=== PATIENT | female | born 1995 | race African-American/Black ===

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

== ENCOUNTER 2017-01-14 21:25 | Emergency (ER) | payer SELFPAY ==
[~2017-01-14] VITALS: Ht 160 cm; Wt 62.0 kg
[~2017-01-14 21:25] MED LIST changes: +BACT800T5 PO; +OCUF0.3D LEFT EYE
[2017-01-14 21:26] VITALS: BP 103/59; PULSE 98; RESP 16; TEMP 98.8; O2SAT 98
--- NOTE | 2017-01-14 21:49 | PD ---
HPI Chief Complaint: Allergic/Adverse Reaction Time Seen by Provider: 21:40 Travel History International Travel<30 days: No Contact w/Intl Traveler<30days: No Traveled to known affect area: No History of Present Illness HPI 21-year-old female presents to emergency department for evaluation of possible allergic reaction. Patient states approximately 2 hours ago she had chicken fingers and fries. She states she began itching. Her lips began to swell. She has not taken anything for this, states the itching is unbearable. 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 Denies any sensation of throat swelling or difficulty breathing. She has no other symptoms to report. [facility] Past Medical History Asthma: Yes Diminished Hearing: No Respiratory: Yes (ASTHMA) Immunizations Current: Yes ?: Not LMP: 12/2016 Social History Alcohol Use: No Tobacco Use: No Substance Use: No Allergies-Medications (Allergen,Severity, Reaction): Coded Allergies: No Known Allergies (Unverified , 01/14/17) Reported Meds & Prescriptions Reported Meds & Active Scripts Active Prednisone 20 Mg Tab 20 Mg PO BID 3 Days Epipen 2-Luiz Inj (Epinephrine) 0.3 Mg/0.3 Ml Pfpen 0.3 Mg SQ ONCE PRN Reported Allergy Relief (Loratadine) 10 Mg Tab 10 Mg PO DAILY Dulera 120 Act Inh (Mometasone-Formoterol 120 Act Inh) 100-5 Mcg/Act Inh 2 Puff INH BID Review of Systems Except as stated in HPI: all other systems reviewed are Neg Physical Exam Narrative GENERAL: Well-nourished, well-developed female patient, in no acute distress. SKIN: Focused skin assessment warm/dry. Blanchable erythematous urticarial- like rash on the upper extremities. HEAD: Normocephalic. EYES: No scleral icterus. No injection or drainage. ENT: Moderate edema of the lips. Mucosa pink and moist. No erythema or exudates. No uvular edema. No uvular, palatal, or tonsillar deviation. Airway patent. Nasal turbinates appear normal without nasal blood, purulent drainage or septal hematoma. NECK: Supple, trachea midline. No JVD or lymphadenopathy. No stridor CARDIOVASCULAR: Regular rate and rhythm without murmurs, gallops, or rubs. RESPIRATORY: Breath sounds equal bilaterally. No accessory muscle use. GASTROINTESTINAL: Abdomen soft, non-tender, nondistended. MUSCULOSKELETAL: No cyanosis, or edema. BACK: Nontender without obvious deformity. No CVA tenderness. Data Data Last Documented VS Vital Signs Date Time Temp Pulse Resp B/P (MAP) Pulse Ox O2 Delivery O2 Flow Rate FiO2 01/14/17 21:26 98.8 98 16 103/59 (74) 98 Room Air Orders Orders Ecg Monitoring (01/14/17 21:48) Iv Access Insert/Monitor (01/14/17 21:48) Oximetry (01/14/17 21:48) Diphenhydramine Inj (Benadryl Inj) (01/14/17 22:00) Methylprednisolone So Succ Inj (Solumedr (01/14/17 22:00) Famotidine Inj (Pepcid Inj) (01/14/17 22:00) Sodium Chloride 0.9% Flush (Ns Flush) (01/14/17 22:00) MDM Medical Decision Making Medical Screen Exam Complete: Yes Emergency Medical Condition: Yes Medical Record Reviewed: Yes Differential Diagnosis Allergic reaction versus contact dermatitis versus anaphylaxis Narrative Course 21-year-old female presents to emergency department for evaluation of possible allergic reaction. Patient appears without distress. She does have a urticarial-like rash on her upper extremities and a few edema. IV access is obtained and the patient is given Benadryl, Pepcid, and Solu-Medrol. She'll be observed for 2 hours. Upon reassessment, patient reports feeling much better. She states that he still does have some itching however hives have completely resolved and her angioedema has resolved. Patient will be prescribed an EpiPen. I have encouraged trolley wire installer follow-up. She agrees to return immediately with any acute worsening of symptoms. Diagnosis Primary Impression: Allergic reaction Qualified Codes: T78.40XA - Allergy, unspecified, initial encounter Referrals: Primary Care Physician Patient Instructions: Anaphylaxis (ED), General Instructions Additional Instructions: Continue Benadryl as instructed on the package for the next 24 hours. Seek trolley wire installer evaluation Carry EpiPen with you where you go. If you need to use it come to the emergency department immediately following Follow-up with the primary care provider return immediately with any acute worsening symptoms. Med/Other Pt SpecificInfo: Prescription(s) given Scripts Prednisone (Prednisone) 20 Mg Tab 20 MG PO BID for 3 Days, #6 TAB 0 Refills Prov: Dora Julian 01/14/17 Epinephrine Inj (Epipen 2-Luiz Inj) 0.3 Mg/0.3 Ml Pfpen 0.3 MG SQ ONCE Y for ALLERGIC REACTION, #1 PACK 0 Refills Prov: Dora Julian 01/14/17 Disposition: 01 DISCHARGE HOME Condition: Stable Dora Julian Jan 14, 2017 21:49
[2017-01-14] MEDS ORDERED: methylPREDNISolone SOD SUCC 125 MG/2 ML VIAL IV PUSH ONE (22:00)
[2017-01-14] MEDS ORDERED: diphenhydrAMINE HCL 50 MG/ML VIAL IVP ONE (22:00)
[2017-01-14] MEDS ORDERED: SODIUM CHLORIDE 0.9% FLUSH 10 ML FLUSH IV FLUSH PRN (22:00)
[2017-01-14] MEDS ORDERED: FAMOTIDINE 20 MG/2 ML VIAL IV PUSH ONE (22:00)
[2017-01-14] MEDS ORDERED: ALLE10TA PO (22:01)
[2017-01-14] MEDS ORDERED: EPIP0.3I SQ (23:03)
[2017-01-14] MEDS ORDERED: PRED20 PO (23:03)
== END 2017-01-14 23:22 | disposition home or self-care (01) ==
LOC: NEPD 21:25
DX: T78.40XA Allergy, unspecified, initial encounter (principal); L50.9 Urticaria, unspecified; J45.909 Unspecified asthma, uncomplicated
CPT/HCPCS: 96374; 96375; 99284; J1200; J2930

== ENCOUNTER 2017-02-16 13:09 | Emergency (ER) | payer SELFPAY ==
[~2017-02-16] VITALS: Ht 160 cm; Wt 61.0 kg
[~2017-02-16 13:09] MED LIST changes: -ALBUAER3 INH; -BACT800T5 PO; +EPIP0.3I SQ; -IPRA0.06 EACH NARE; +LORA-650 PO; -LORA10TA PO; -OCUF0.3D LEFT EYE; +PRED20 PO
[2017-02-16 13:13] VITALS: BP 129/56; PULSE 80; RESP 16; TEMP 98.4
--- NOTE | 2017-02-16 13:17 | PD ---
Physical Exam Date Seen by Provider: Feb 16, 2017 Time Seen by Provider: 13:15 Narrative 21-year-old black female presents to emergency department for evaluation of a possible allergic reaction to blueberries. She states that around 1:00 yesterday afternoon she had taken a bite of a waffle that may have had blueberries in it. She states that she's had allergic reactions to blueberries in the past causing her throat to close up. She states that she had spit the waffle out and did not swallow it. She states today she's had sensation of swelling in her throat, swollen lips and upset stomach. Patient states that she does feel short of breath and had some wheezing. Symptoms are mild-to- moderate. Vital signs reviewed. Pt. waiting for bed placement. Data Data Last Documented VS Vital Signs Date Time Temp Pulse Resp B/P (MAP) Pulse Ox O2 Delivery O2 Flow Rate FiO2 02/16/17 13:13 98.4 80 16 129/56 (80) Room Air [facility] Medical Record Reviewed: No Supervised Visit with SAMARA: Randy Aaron Feb 16, 2017 13:17
[2017-02-16] MEDS ORDERED: diphenhydrAMINE HCL 50 MG/ML VIAL IV PUSH ONE (13:30)
[2017-02-16] MEDS ORDERED: PROCHLORPERAZINE INJ 10 MG/2 ML VIAL IV PUSH ONE (13:45)
[2017-02-16] MEDS ORDERED: SODIUM CHLOR 0.9% 1000 ML INJ 1,000 ML IV ONE (13:45)
[2017-02-16 13:56] VITALS: PULSE 58; RESP 16; O2SAT 100
--- NOTE | 2017-02-16 14:47 | PD ---
HPI . Allergic reaction Chief Complaint: Allergic/Adverse Reaction Time Seen by Provider: 13:29 Travel History International Travel<30 days: No Contact w/Intl Traveler<30days: No Traveled to known affect area: No History of Present Illness HPI This patient presents with a chief complaint of an allergic reaction. She states that she has a known allergy to blueberries and inadvertently ate a blueberry waffle yesterday. She reports the onset of symptoms at about 2:00 yesterday afternoon. She had eaten a wall fall about an hour beforehand. She states that she initially had itching of her throat. She took some Benadryl and got better. However, this morning, the itching of her throat recurred. She developed swelling of her lips, shortness of breath and nausea and vomiting. She did not take anymore Benadryl. She presented to us. [facility] Past Medical History Asthma: Yes Diminished Hearing: No Respiratory: Yes (ASTHMA) Immunizations Current: Yes ?: Unknown Social History Alcohol Use: No Tobacco Use: No Substance Use: No Allergies-Medications (Allergen,Severity, Reaction): Coded Allergies: blueberry (Verified Allergy, Severe, close throat, 02/16/17) No Known Allergies (Unverified Allergy, Unknown, 02/16/17) Reported Meds & Prescriptions Reported Meds & Active Scripts Active Prednisone 20 Mg Tab 20 Mg PO BID 3 Days Epipen 2-Luiz Inj (Epinephrine) 0.3 Mg/0.3 Ml Pfpen 0.3 Mg SQ ONCE PRN Reported Allergy Relief (Loratadine) 10 Mg Tab 10 Mg PO DAILY Dulera 120 Act Inh (Mometasone-Formoterol 120 Act Inh) 100-5 Mcg/Act Inh 2 Puff INH BID Review of Systems Except as stated in HPI: all other systems reviewed are Neg HENT: Positive: Other (itching throat and swollen lips) Respiratory: Positive: Shortness of Breath Gastrointestinal: Positive: Nausea, Vomiting Physical Exam Narrative GENERAL: Patient is awake and alert. She occasionally stops and vomits up a very small amount of gastric contents. SKIN: Warm and dry without rash or lesions. HEAD: Normocephalic/atraumatic. EYES: Pupils are equal. Extraocular movements are intact. ENT: Voice is clear. Oropharynx has no visible swelling. Her lips do look swollen. NECK: Supple. CARDIOVASCULAR: Heart sounds are normal. RESPIRATORY: Lungs are clear with full air movement throughout. ABDOMEN: Soft and nontender. MUSCULOSKELETAL: Atraumatic. NEUROLOGICAL: Nonfocal. PSYCHIATRIC: Appropriate mood and affect. Data Data Last Documented VS Vital Signs Date Time Temp Pulse Resp B/P (MAP) Pulse Ox O2 Delivery O2 Flow Rate FiO2 02/16/17 13:56 58 16 100 Room Air 02/16/17 13:13 98.4 129/56 (80) Orders Orders Diphenhydramine Inj (Benadryl Inj) (02/16/17 13:30) Prochlorperazine Inj (Compazine Inj) (02/16/17 13:45) Sodium Chlor 0.9% 1000 Ml Inj (Ns 1000 M (02/16/17 13:45) MDM Medical Decision Making Medical Screen Exam Complete: Yes Emergency Medical Condition: Yes Differential Diagnosis My differential diagnosis of an allergic reaction includes but is not limited to localized allergic reaction, mild systemic reaction, anaphylaxis Narrative Course This patient presents with what seems to be a mild allergic reaction. She has itching of her throat, swelling of her lips, shortness of breath and nausea/ vomiting. However, she is having no airway issue. Her lungs are clear with full air movement throughout. I have treated her with IV Benadryl and IV Compazine. She is now sound sleep. She reported to her family that she felt better and was ready to go home. Diagnosis Primary Impression: Allergic reaction to food Qualified Codes: T78.1XXA - Other adverse food reactions, not elsewhere classified, initial encounter Patient Instructions: General Allergic Reaction (ED), General Instructions Additional Instructions: Keep Benadryl on hand. Take 2 every 4 hours as needed for an allergic reaction. Disposition: 01 DISCHARGE HOME Condition: Stable Es Lam MD Feb 16, 2017 14:47
== END 2017-02-16 15:13 | disposition home or self-care (01) ==
LOC: NEPD 13:09
DX: T78.1XXA Other adverse food reactions, not elsewhere classified, initial encounter (principal); L29.9 Pruritus, unspecified; R22.0 Localized swelling, mass and lump, head; R06.02 Shortness of breath; R11.2 Nausea with vomiting, unspecified; J45.909 Unspecified asthma, uncomplicated; Z79.899 Other long term (current) drug therapy
CPT/HCPCS: 96374; 96375; 99284; J0780; J1200; J7030

== ENCOUNTER 2017-03-19 15:14 | Emergency (ER) | payer SELFPAY ==
[2017-03-19 15:16] VITALS: BP 115/68; PULSE 70; RESP 14; TEMP 99; O2SAT 100
[2017-03-19] MEDS ORDERED: SODIUM CHLOR 0.9% 1000 ML INJ 1,000 ML IV SCH (15:38)
--- NOTE | 2017-03-19 15:40 | PD ---
HPI Chief Complaint: GI Complaint Time Seen by Provider: 15:30 Travel History International Travel<30 days: No Contact w/Intl Traveler<30days: No Traveled to known affect area: No History of Present Illness HPI Examined in presence of female nurse. 21-year-old female presents for evaluation of nausea, vomiting, diarrhea. She reports that at 8 PM yesterday she ate a chicken burrito. She began vomiting and having diarrhea 130 in the morning. She reports nonbloody emesis, dry heaving as well as mild epigastric pain, watery nonbloody stools. She endorses some chills. Denies dysuria, flank pain, vaginal bleeding or discharge. She has no other complaints. PFSH Past Medical History Asthma: Yes Diminished Hearing: No Respiratory: Yes (ASTHMA) Immunizations Current: Yes Tetanus Vaccination: < 5 Years ?: Not LMP: 02/26/2017 Social History Alcohol Use: No Tobacco Use: No Substance Use: No Allergies-Medications (Allergen,Severity, Reaction): Coded Allergies: blueberry (Verified Allergy, Severe, close throat, 03/19/17) No Known Allergies (Unverified Allergy, Unknown, 03/19/17) Reported Meds & Prescriptions Reported Meds & Active Scripts Active Zofran (Ondansetron HCl) 4 Mg Tab 4 Mg PO Q6HR PRN Epipen 2-Luiz Inj (Epinephrine) 0.3 Mg/0.3 Ml Pfpen 0.3 Mg SQ ONCE PRN Reported Allergy Relief (Loratadine) 10 Mg Tab 10 Mg PO DAILY Dulera 120 Act Inh (Mometasone-Formoterol 120 Act Inh) 100-5 Mcg/Act Inh 2 Puff INH BID Review of Systems Except as stated in HPI: all other systems reviewed are Neg Physical Exam Narrative GENERAL: Well-nourished female in no acute distress SKIN: Warm and dry. HEAD: Atraumatic. Normocephalic. EYES: Pupils equal and round. No scleral icterus. No injection or drainage. ENT: No nasal bleeding or discharge. Mucous membranes pink and moist. NECK: Trachea midline. No JVD. CARDIOVASCULAR: Regular rate and rhythm. No murmur appreciated. RESPIRATORY: No accessory muscle use. Clear to auscultation. Breath sounds equal bilaterally. GASTROINTESTINAL: Abdomen soft, mild epigastric tenderness without guarding. MUSCULOSKELETAL: No obvious deformities. No clubbing. No cyanosis. No edema. NEUROLOGICAL: Awake and alert. No obvious cranial nerve deficits. Motor grossly within normal limits. Normal speech. PSYCHIATRIC: Appropriate mood and affect; insight and judgment normal. Data Data Last Documented VS Vital Signs Date Time Temp Pulse Resp B/P (MAP) Pulse Ox O2 Delivery O2 Flow Rate FiO2 03/19/17 15:16 99.0 70 14 115/68 (84) 100 Orders Orders Complete Blood Count With Diff (03/19/17 15:38) Comprehensive Metabolic Panel (03/19/17 15:38) Lipase (03/19/17 15:38) Iv Access Insert/Monitor (03/19/17 15:38) Ondansetron Inj (Zofran Inj) (03/19/17 15:45) Sodium Chlor 0.9% 1000 Ml Inj (Ns 1000 M (03/19/17 15:38) Sodium Chloride 0.9% Flush (Ns Flush) (03/19/17 15:45) Ed Urine Pregnancytest Poc (03/19/17 15:38) Labs Laboratory Tests Test 03/19/17 15:40 White Blood Count 6.5 TH/MM3 Red Blood Count 4.34 MIL/MM3 Hemoglobin 12.1 GM/DL Hematocrit 36.2 % Mean Corpuscular Volume 83.3 FL Mean Corpuscular Hemoglobin 27.8 PG Mean Corpuscular Hemoglobin Concent 33.4 % Red Cell Distribution Width 15.3 % Platelet Count 221 TH/MM3 Mean Platelet Volume 8.0 FL Neutrophils (%) (Auto) 58.9 % Lymphocytes (%) (Auto) 32.5 % Monocytes (%) (Auto) 7.4 % Eosinophils (%) (Auto) 0.8 % Basophils (%) (Auto) 0.4 % Neutrophils # (Auto) 3.8 TH/MM3 Lymphocytes # (Auto) 2.1 TH/MM3 Monocytes # (Auto) 0.5 TH/MM3 Eosinophils # (Auto) 0.1 TH/MM3 Basophils # (Auto) 0.0 TH/MM3 CBC Comment DIFF FINAL Differential Comment Blood Urea Nitrogen 12 MG/DL Creatinine 0.96 MG/DL Random Glucose 74 MG/DL Total Protein 7.9 GM/DL Albumin 3.9 GM/DL Calcium Level 9.1 MG/DL Alkaline Phosphatase 93 U/L Aspartate Amino Transf (AST/SGOT) 15 U/L Alanine Aminotransferase (ALT/SGPT) 20 U/L Total Bilirubin 0.2 MG/DL Sodium Level 136 MEQ/L Potassium Level 3.8 MEQ/L Chloride Level 104 MEQ/L Carbon Dioxide Level 26.9 MEQ/L Anion Gap 5 MEQ/L Estimat Glomerular Filtration Rate 91 ML/MIN Lipase 105 U/L MDM Medical Decision Making Medical Screen Exam Complete: Yes Emergency Medical Condition: Yes Medical Record Reviewed: Yes Differential Diagnosis Food poisoning, gastroenteritis, , dehydration, pancreatitis Narrative Course 21-year-old female with 1 day history of nausea, vomiting, diarrhea. Suspect gastroenteritis/food poisoning. Plan is for lab work, IV fluids, Zofran. Lab work is unremarkable. On reexamination she feels much better and she is able tolerate oral hydration. She is stable for discharge with a short course of Zofran. Diagnosis Primary Impression: Gastroenteritis Additional Instructions: Zofran for nausea. Slowly advance diet. Return for any emergent medical conditions. Med/Other Pt SpecificInfo: Prescription(s) given Scripts Ondansetron (Zofran) 4 Mg Tab 4 MG PO Q6HR Y for NAUSEA OR VOMITING, #15 TAB 0 Refills Prov: Manuel Barger MD 03/19/17 Disposition: 01 DISCHARGE HOME Condition: Stable Yonas Muñoz Mar 19, 2017 15:40
[2017-03-19] MEDS ORDERED: ONDANSETRON HCL 4 MG/2 ML VIAL IVP ONE (15:45)
[2017-03-19] MEDS ORDERED: SODIUM CHLORIDE 0.9% FLUSH 10 ML FLUSH IV FLUSH PRN (15:45)
[2017-03-19 16:08] LABS: AUTOMATED NEUTROPHIL # 3.8 TH/MM3 (1.8-7.7); BASOPHIL % 0.4 % (0.0-2.0); EOSINOPHIL # 0.1 TH/MM3 (0-0.4); EOSINOPHIL % 0.8 % (0.0-4.0); HEMATOCRIT 36.2 % (35.0-46.0); HEMO FLAGS DIFF FINAL; LYMPH % 32.5 % (9.0-44.0); LYMPHOCYTE # 2.1 TH/MM3 (1.0-4.8); MEAN CELL VOLUME 83.3 FL (80.0-100.0); MEAN CORPUSCULAR HEMOGLOBIN 27.8 PG (27.0-34.0); MEAN CORPUSCULAR HGB CONC 33.4 % (32.0-36.0); MONO % 7.4 % (0.0-8.0); NEUT % 58.9 % (16.0-70.0); PLATELET COUNT 221 TH/MM3 (150-450); RED BLOOD COUNT 4.34 MIL/MM3 (4.00-5.30); RED CELL DISTRIBUTION WIDTH 15.3 % (11.6-17.2); WHITE BLOOD COUNT 6.5 TH/MM3 (4.0-11.0)
[2017-03-19 16:26] LABS: ALT (GPT) 20 U/L (9-42); ANION GAP 5 MEQ/L (5-15); AST (GOT) 15 U/L (16-38); BICARBONATE 26.9 MEQ/L (21.0-32.0); BLOOD UREA NITROGEN 12 MG/DL (7-18); CHLORIDE 104 MEQ/L (98-107); GLOMERULAR FILTRATION RATE 91 ML/MIN (>89); POTASSIUM 3.8 MEQ/L (3.5-5.1); SODIUM (NA) 136 MEQ/L (136-145)
[2017-03-19 16:28] LABS: ALKALINE PHOSPHATASE 93 U/L (45-117); TOTAL BILIRUBIN ADULT 0.2 MG/DL (0.2-1.0)
[2017-03-19] MEDS ORDERED: ZOFR4TAB PO (16:32)
== END 2017-03-19 17:12 | disposition home or self-care (01) ==
LOC: NEPC 15:14
DX: K52.9 Noninfective gastroenteritis and colitis, unspecified (principal)
CPT/HCPCS: 80053; 83690; 84703; 85025; 96361; 96374; 99284; J2405; J7030

== ENCOUNTER 2017-05-12 23:49 | Emergency (ER) | payer SELFPAY ==
[~2017-05-12] VITALS: Ht 161.3 cm; Wt 60.0 kg
[~2017-05-12 23:49] MED LIST changes: -PRED20 PO; +ZOFR4TAB PO
[2017-05-12 23:51] VITALS: BP 118/76; PULSE 96; RESP 16; TEMP 98.3; O2SAT 100
--- NOTE | 2017-05-13 01:46 | RADRPT ---
EXAM DATE/TIME: 05/13/2017 01:30 [facility] COMPARISON: ANKLE RIGHT COMPLETE ([id number]), January 11, 2016, 16:56. INDICATIONS : Right medial ankle pain after tripping a few hours ago. MEDICAL HISTORY : None. SURGICAL HISTORY : None. ENCOUNTER: Initial ACUITY: 1 day PAIN SCORE: 5/10 LOCATION: Right ankle FINDINGS: Three view exam was performed of the right ankle. The bony structures are in normal alignment. No e vidence of fracture, dislocation, or soft tissue swelling. The ankle mortise is intact. No radiopaq ue foreign bodies are seen. Bony mineralization is normal. CONCLUSION: No evidence of recent bony injury. Eddy Larios MD on May 13, 2017 at 1:44 Board Certified Radiologist. This report was verified electronically.
[2017-05-13] MEDS ORDERED: IBUP1TAB7 PO (02:29)
--- NOTE | 2017-05-13 02:29 | PD ---
HPI Chief Complaint: Injury Time Seen by Provider: 01:55 Travel History International Travel<30 days: No Contact w/Intl Traveler<30days: No Traveled to known affect area: No History of Present Illness HPI Patient is a 21-year-old female presenting to emergency for evaluation of right ankle pain. Patient states that she twisted Thursday at [facility], she is able to bear weight but it's sore. She states that she tripped in her dorm room yesterday and twisted it again. She states the pain is 8 out of 10, she states it's sore and throbbing. There are no alleviating factors, pain is exacerbated with movement. Onset was sudden. Patient denies any other injury. She took ibuprofen at 1700 last night. PFSH Past Medical History Asthma: Yes Diminished Hearing: No Respiratory: Yes (ASTHMA) Immunizations Current: Yes ?: Not LMP: 04/24/17 Past Surgical History Surgical History: No Previous Surgery Social History Alcohol Use: No Tobacco Use: No Substance Use: No Allergies-Medications (Allergen,Severity, Reaction): Coded Allergies: Sulfa (Sulfonamide Antibiotics) (Verified Allergy, Severe, Anaphylaxis, ) blueberry (Verified Allergy, Severe, close throat, 05/12/17) No Known Allergies (Unverified Allergy, Unknown, 03/19/17) Reported Meds & Prescriptions Reported Meds & Active Scripts Active Epipen 2-Luiz Inj (Epinephrine) 0.3 Mg/0.3 Ml Pfpen 0.3 Mg SQ ONCE PRN Reported Dulera 120 Act Inh (Mometasone-Formoterol 120 Act Inh) 100-5 Mcg/Act Inh 2 Puff INH BID Review of Systems Except as stated in HPI: all other systems reviewed are Neg Musculoskeletal: Positive: Myalgias, Arthralgias, Pain, No: Edema Skin: No Change in Pigmentation Physical Exam Narrative GENERAL: Well-developed, well-nourished, alert female. Resting comfortably in no acute distress. SKIN: Warm and dry. HEAD: Normocephalic. EYES: No scleral icterus. No injection or drainage. NECK: Supple, trachea midline. No JVD or lymphadenopathy. CARDIOVASCULAR: Regular rate and rhythm without murmurs, gallops, or rubs. RESPIRATORY: Breath sounds equal bilaterally. No accessory muscle use. GASTROINTESTINAL: Abdomen soft, non-tender, nondistended. MUSCULOSKELETAL: No cyanosis, or edema. Full range of motion with flexion, extension and internal and external rotation. 2+ dorsalis pedal pulses. There is no obvious deformity or edema noted to the right ankle. BACK: Nontender without obvious deformity. No CVA tenderness. Data Data Last Documented VS Vital Signs Date Time Temp Pulse Resp B/P (MAP) Pulse Ox O2 Delivery O2 Flow Rate FiO2 05/12/17 23:51 98.3 96 16 118/76 (90) 100 Orders Orders Ankle, Complete ([id number]) (05/13/17 ) [facility] Medical Decision Making Medical Screen Exam Complete: Yes Emergency Medical Condition: Yes Interpretation(s) Last Impressions Ankle X-Ray 05/13/17 0000 Signed Impressions: Service Date/Time: Saturday, May 13, 2017 01:30 - CONCLUSION: No evidence of recent bony injury. Eddy Larios MD Vital Signs Date Time Temp Pulse Resp B/P (MAP) Pulse Ox O2 Delivery O2 Flow Rate FiO2 05/12/17 23:51 98.3 96 16 118/76 (90) 100 Differential Diagnosis Fracture versus sprain versus strain versus other Narrative Course Patient is a 21 female presenting to emergency department for evaluation of right ankle pain after twisting it twice since Thursday. No focal deficits noted on exam. No obvious deformities. Patient's vital signs are stable, x-ray ordered. X-ray of the right ankle is negative for acute bony abnormality. Patient was encouraged to rest, ice, elevate extremity. She was offered an Frank wrap and crutches but declined. She is encouraged to eat ibuprofen every 6-8 hours consistently for the next 2-3 days with a small meal. She is encouraged to return to emergency department for any new or worsening symptoms. Patient verbalized understanding of instructions. Patient stable for discharge. Diagnosis Primary Impression: Right ankle pain Qualified Codes: M25.571 - Pain in right ankle and joints of right foot Referrals: Primary Care Physician Patient Instructions: Ankle Exercises (GEN), Ankle Sprain (ED), General Instructions Additional Instructions: Rest, ice, elevate extremity Take ibuprofen as directed and as needed for pain Return to emergency department for any new or worsening symptoms Follow-up with her primary doctor Med/Other Pt SpecificInfo: Prescription(s) given Scripts Ibuprofen (Ibuprofen) 800 Mg Tab 800 MG PO Q6HR Y for PAIN, #40 TAB 0 Refills Prov: Klaudia Land 05/13/17 Disposition: 01 DISCHARGE HOME Condition: Stable Klaudia Land May 13, 2017 02:29
== END 2017-05-13 02:38 | disposition home or self-care (01) ==
LOC: NEPD 23:49
DX: M25.571 Pain in right ankle and joints of right foot (principal); X50.0XXA Overexertion from strenuous movement or load, initial encounter; Y93.01 Activity, walking, marching and hiking; W18.40XA Slipping, tripping and stumbling without falling, unspecified, initial encounter; Y92.169 Unspecified place in school dormitory as the place of occurrence of the external cause; J45.909 Unspecified asthma, uncomplicated
CPT/HCPCS: 73610; 99283

== ENCOUNTER 2017-06-09 11:55 | Emergency (ER) | payer SELFPAY ==
[~2017-06-09] VITALS: Ht 160 cm; Wt 59.0 kg
[~2017-06-09 11:55] MED LIST changes: +IBUP1TAB7 PO; -LORA-650 PO; -ZOFR4TAB PO
[2017-06-09 11:56] VITALS: BP 110/51; PULSE 72; RESP 16; TEMP 98.9; O2SAT 98
[2017-06-09 12:33] LABS: AUTOMATED NEUTROPHIL # 3.8 TH/MM3 (1.8-7.7); BASOPHIL % 0.4 % (0.0-2.0); EOSINOPHIL # 0.1 TH/MM3 (0-0.4); EOSINOPHIL % 0.9 % (0.0-4.0); HEMATOCRIT 39.2 % (35.0-46.0); HEMOGLOBIN 13.1 GM/DL (11.6-15.3); LYMPH % 26.1 % (9.0-44.0); LYMPHOCYTE # 1.5 TH/MM3 (1.0-4.8); MEAN CELL VOLUME 82.3 FL (80.0-100.0); MEAN CORPUSCULAR HEMOGLOBIN 27.6 PG (27.0-34.0); MEAN CORPUSCULAR HGB CONC 33.5 % (32.0-36.0); MEAN PLATELET VOLUME 7.7 FL (7.0-11.0); MONO % 6.1 % (0.0-8.0); MONOCYTE # 0.3 TH/MM3 (0-0.9); NEUT % 66.5 % (16.0-70.0); PLATELET COUNT 238 TH/MM3 (150-450); RED BLOOD COUNT 4.77 MIL/MM3 (4.00-5.30); RED CELL DISTRIBUTION WIDTH 14.6 % (11.6-17.2); WHITE BLOOD COUNT 5.7 TH/MM3 (4.0-11.0)
[2017-06-09 12:37] LABS: BILIRUBIN, URINE NEG (NEG); BLOOD, URINE NEG (NEG); GLUCOSE,URINE NEG (NEG); KETONE, URINE NEG (NEG); MUCUS URINE FEW /lpf (OCC); NITRITE,URINE NEG (NEG); PH, URINE 6.5 (5.0-8.5); SQUAMOUS EPITHELIAL CELL URINE 1 /hpf (0-5); URINE COLOR YELLOW (YELLW/STRAW); URINE LEUKOCYTE ESTERASE MOD (NEG)
[2017-06-09 12:50] LABS: ALBUMIN 3.9 GM/DL (3.4-5.0); ALT (GPT) 16 U/L (9-42); AST (GOT) 17 U/L (16-38); BICARBONATE 26.2 MEQ/L (21.0-32.0); BLOOD UREA NITROGEN 11 MG/DL (7-18); CALCIUM 8.7 MG/DL (8.5-10.1); CHLORIDE 104 MEQ/L (98-107); GLOMERULAR FILTRATION RATE 86 ML/MIN (>89); GLUCOSE,RANDOM 95 MG/DL (74-106); SODIUM (NA) 137 MEQ/L (136-145)
[2017-06-09 12:52] LABS: ALKALINE PHOSPHATASE 98 U/L (45-117); TOTAL BILIRUBIN ADULT 0.3 MG/DL (0.2-1.0); TOTAL PROTEIN 8.2 GM/DL (6.4-8.2)
[2017-06-09] MEDS ORDERED: ONDANSETRON HCL 4 MG/2 ML VIAL IV PUSH ONE (13:15)
[2017-06-09] MEDS ORDERED: SODIUM CHLOR 0.9% 1000 ML INJ 1,000 ML IV ONE (13:15)
--- NOTE | 2017-06-09 14:36 | PD ---
HPI Chief Complaint: GI Complaint Time Seen by Provider: 13:07 Travel History International Travel<30 days: No Contact w/Intl Traveler<30days: No Traveled to known affect area: No History of Present Illness HPI Patient is a 21 year old female who comes in complaining of nausea and vomiting. She says she ate in the school cafeteria last night and then started vomiting. She denies any abdominal pain. She has not had any diarrhea. She says she last vomited this morning, but still has not been able to drink anything. She denies fever or chills or urinary symptoms. She has not taken anything for her symptoms. Severity is mild to moderate. PFSH Past Medical History Asthma: Yes Diminished Hearing: No Respiratory: Yes (asthma) Immunizations Current: Yes ?: Not LMP: beginning of month Social History Alcohol Use: No Tobacco Use: No Substance Use: No Allergies-Medications (Allergen,Severity, Reaction): Coded Allergies: Sulfa (Sulfonamide Antibiotics) (Verified Allergy, Severe, Anaphylaxis, ) blueberry (Verified Allergy, Severe, close throat, 05/12/17) Reported Meds & Prescriptions Reported Meds & Active Scripts Active Ibuprofen 800 Mg Tab 800 Mg PO Q6HR PRN Epipen 2-Luiz Inj (Epinephrine) 0.3 Mg/0.3 Ml Pfpen 0.3 Mg SQ ONCE PRN Reported Dulera 120 Act Inh (Mometasone-Formoterol 120 Act Inh) 100-5 Mcg/Act Inh 2 Puff INH BID Review of Systems Except as stated in HPI: all other systems reviewed are Neg General / Constitutional: No: Fever, Chills HENT: No: Headaches, Lightheadedness Cardiovascular: No: Chest Pain or Discomfort Respiratory: No: Shortness of Breath Gastrointestinal: Positive: Nausea, Vomiting, No: Diarrhea, Abdominal Pain Genitourinary: No: Dysuria Musculoskeletal: No: Myalgias, Edema Skin: No Rash, No Change in Pigmentation Neurologic: No: Weakness, Dizziness Physical Exam Narrative GENERAL: Awake and alert, in no acute distress. SKIN: Focused skin assessment warm/dry. No wounds or signs of infection. HEAD: Atraumatic. Normocephalic. EYES: Pupils equal and round. No scleral icterus. ENT: Mucous membranes pink and moist. NECK: Trachea midline. No JVD. CARDIOVASCULAR: Regular rate and rhythm. No murmur appreciated. RESPIRATORY: No accessory muscle use. Clear to auscultation. Breath sounds equal bilaterally. GASTROINTESTINAL: Abdomen soft, non-tender, nondistended. MUSCULOSKELETAL: No obvious deformities. No clubbing. No cyanosis. No edema. NEUROLOGICAL: Awake and alert. No obvious cranial nerve deficits. Motor grossly within normal limits. Normal speech. PSYCHIATRIC: Appropriate mood and affect; insight and judgment normal. Data Data Last Documented VS Vital Signs Date Time Temp Pulse Resp B/P (MAP) Pulse Ox O2 Delivery O2 Flow Rate FiO2 06/09/17 11:56 98.9 72 16 110/51 (70) 98 Room Air Orders Orders Complete Blood Count With Diff (06/09/17 12:01) Comprehensive Metabolic Panel (06/09/17 12:01) Urinalysis - C+S If Indicated (06/09/17 12:01) Lipase (06/09/17 12:01) Ed Urine Pregnancytest Poc (06/09/17 12:01) Iv Access Insert/Monitor (06/09/17 13:10) Ondansetron Inj (Zofran Inj) (06/09/17 13:15) Sodium Chlor 0.9% 1000 Ml Inj (Ns 1000 M (06/09/17 13:15) Labs Laboratory Tests Test 06/09/17 12:10 White Blood Count 5.7 TH/MM3 Red Blood Count 4.77 MIL/MM3 Hemoglobin 13.1 GM/DL Hematocrit 39.2 % Mean Corpuscular Volume 82.3 FL Mean Corpuscular Hemoglobin 27.6 PG Mean Corpuscular Hemoglobin Concent 33.5 % Red Cell Distribution Width 14.6 % Platelet Count 238 TH/MM3 Mean Platelet Volume 7.7 FL Neutrophils (%) (Auto) 66.5 % Lymphocytes (%) (Auto) 26.1 % Monocytes (%) (Auto) 6.1 % Eosinophils (%) (Auto) 0.9 % Basophils (%) (Auto) 0.4 % Neutrophils # (Auto) 3.8 TH/MM3 Lymphocytes # (Auto) 1.5 TH/MM3 Monocytes # (Auto) 0.3 TH/MM3 Eosinophils # (Auto) 0.1 TH/MM3 Basophils # (Auto) 0.0 TH/MM3 CBC Comment DIFF FINAL Differential Comment Urine Color YELLOW Urine Turbidity CLEAR Urine pH 6.5 Urine Specific [place] 1.019 Urine Protein NEG mg/dL Urine Glucose (UA) NEG mg/dL Urine Ketones NEG mg/dL Urine Occult Blood NEG Urine Nitrite NEG Urine Bilirubin NEG Urine Urobilinogen LESS THAN 2.0 MG/DL Urine Leukocyte Esterase MOD Urine RBC 1 /hpf Urine WBC 2 /hpf Urine Squamous Epithelial Cells 1 /hpf Urine Mucus FEW /lpf Microscopic Urinalysis Comment CULT NOT INDICATED Blood Urea Nitrogen 11 MG/DL Creatinine 1.00 MG/DL Random Glucose 95 MG/DL Total Protein 8.2 GM/DL Albumin 3.9 GM/DL Calcium Level 8.7 MG/DL Alkaline Phosphatase 98 U/L Aspartate Amino Transf (AST/SGOT) 17 U/L Alanine Aminotransferase (ALT/SGPT) 16 U/L Total Bilirubin 0.3 MG/DL Sodium Level 137 MEQ/L Potassium Level 3.7 MEQ/L Chloride Level 104 MEQ/L Carbon Dioxide Level 26.2 MEQ/L Anion Gap 7 MEQ/L Estimat Glomerular Filtration Rate 86 ML/MIN Lipase 86 U/L [facility] Medical Decision Making Medical Screen Exam Complete: Yes Emergency Medical Condition: Yes Medical Record Reviewed: Yes Differential Diagnosis gastritis vs gastroenteritis vs dehydration Narrative Course Patient is a 21 year old female who comes in complaining of nausea and vomiting after eating in her school cafeteria. Exam shows no abdominal tenderness. IV established, labs sent. Labs show no abnormalities. Given IVF and Zofran. She reports feeling better. she is able to drink fluids without vomiting. She is advised to drink plenty of fluids today. Advised to eat a bland diet if feeling hungry. Return to the ED as needed for any worsening symptoms. Diagnosis Primary Impression: Nausea & vomiting Qualified Codes: R11.2 - Nausea with vomiting, unspecified Patient Instructions: Acute Nausea and Vomiting (ED), General Instructions Additional Instructions: Drink plenty of fluids. Eat a bland diet, if feeling hungry. Return to the ED as needed for any worsening symptoms. Disposition: 01 DISCHARGE HOME Condition: Stable Afshan Mendoza MD Jun 09, 2017 14:36
== END 2017-06-09 15:27 | disposition home or self-care (01) ==
LOC: NEPD 11:55
DX: R11.2 Nausea with vomiting, unspecified (principal)
CPT/HCPCS: 80053; 81001; 83690; 84703; 85025; 96374; 99284; J2405; J7030

== ENCOUNTER 2017-07-09 20:10 | Emergency (ER) | payer SELFPAY ==
[~2017-07-09] VITALS: Ht 160 cm; Wt 60.0 kg
[2017-07-09 20:32] VITALS: BP 126/54; PULSE 69; RESP 16; TEMP 99.1; O2SAT 96
[2017-07-10] MEDS ORDERED: ZOFR8TAB4 SL (00:04)
--- NOTE | 2017-07-10 00:11 | PD ---
HPI Chief Complaint: Cold / Flu Symptoms Time Seen by Provider: 00:00 Travel History International Travel<30 days: No Contact w/Intl Traveler<30days: No Traveled to known affect area: No History of Present Illness HPI 22-year-old black female presents emergency department 6 day history of subjective fever and chills, cough, congestion, myalgias, arthralgias followed by an episode of nausea vomiting today. She states that she went to eat something this afternoon and vomited. She last took ibuprofen sometime around 6 :00. She denies any abdominal pain. No dysuria frequency. Symptoms are moderate. Worsened by vomiting. No alleviating factors. She states that she started getting ill back home in [place] before coming to [facility] for school. PFSH Past Medical History Asthma: Yes Diminished Hearing: No Respiratory: Yes (asthma) Immunizations Current: Yes Past Surgical History Surgical History: No Previous Surgery Social History Alcohol Use: No Tobacco Use: No Substance Use: No Allergies-Medications (Allergen,Severity, Reaction): Coded Allergies: Sulfa (Sulfonamide Antibiotics) (Verified Allergy, Severe, Anaphylaxis, ) blueberry (Verified Allergy, Severe, close throat, 07/09/17) Reported Meds & Prescriptions Reported Meds & Active Scripts Active Zofran Odt (Ondansetron Odt) 8 Mg Tab 8 Mg SL Q8H PRN Ibuprofen 800 Mg Tab 800 Mg PO Q6HR PRN Epipen 2-Luiz Inj (Epinephrine) 0.3 Mg/0.3 Ml Pfpen 0.3 Mg SQ ONCE PRN Reported Dulera 120 Act Inh (Mometasone-Formoterol 120 Act Inh) 100-5 Mcg/Act Inh 2 Puff INH BID Review of Systems Except as stated in HPI: all other systems reviewed are Neg Physical Exam Narrative GENERAL: Well-developed, well-nourished in no acute distress. Nontoxic appearing. HEAD: Normocephalic, atraumatic. EYES: Pupils equal round and reactive. Extraocular motions intact. No scleral icterus. No injection or drainage. ENT: TMs clear without erythema. The external auditory canals clear. Nose: clear . Posterior pharynx is pink and moist. No tonsillar edema or exudate. Uvula midline. Airway patent. NECK: Trachea midline.Supple, nontender, moves head freely. No central bony tenderness or spasm. CARDIOVASCULAR: Regular rate and rhythm without murmurs, gallops, or rubs. RESPIRATORY: Clear to auscultation. Breath sounds equal bilaterally. No wheezes , rales, or rhonchi. GASTROINTESTINAL: Abdomen soft, non-tender, nondistended. No hepato-splenomegaly , or palpable masses. No guarding. EXTREMITIES: No clubbing, cyanosis, or edema. No joint tenderness, effusion, or edema noted. BACK: Nontender without deformity or crepitance. No flank tenderness. Data Data Last Documented VS Vital Signs Date Time Temp Pulse Resp B/P (MAP) Pulse Ox O2 Delivery O2 Flow Rate FiO2 07/09/17 20:32 99.1 69 16 126/54 (78) 96 Orders Orders Ondansetron Odt (Zofran Odt) (07/10/17 00:15) Ibuprofen (Motrin) (07/10/17 00:15) [facility] Medical Decision Making Medical Screen Exam Complete: Yes Emergency Medical Condition: Yes Medical Record Reviewed: Yes Differential Diagnosis Differential diagnosis: Gastroenteritis, UTI, influenza, viral syndrome Narrative Course Patient's exam is reassuring. She looks nontoxic and well-hydrated. Her lungs are clear her abdomen is soft and nontender. She is given Zofran 4 mg p.o., Motrin 600 mg p.o. and a fluid challenge. The patient is feeling improved. She is not vomiting. She is able to take p.o. and looks well. This is a viral syndrome Diagnosis Primary Impression: Viral syndrome Patient Instructions: General Instructions Departure Forms: School Release, Please excuse from school until (free text option): No school 2-3 days. Tests/Procedures Additional Instructions: Rest. Increase fluids. Zofran for nausea vomiting. Tylenol and ibuprofen for any fever or discomfort. Follow-up with the clinic at school in the next 2-3 days for recheck. Return to the ER for emergencies. Med/Other Pt SpecificInfo: Prescription(s) given Scripts Ondansetron Odt (Zofran Odt) 8 Mg Tab 8 MG SL Q8H Y for NAUSEA OR VOMITING, #6 TAB 0 Refills Prov: Humble Gómez MD 07/10/17 Disposition: 01 DISCHARGE HOME Condition: Stable Randy Degroot Jul 10, 2017 00:11
[2017-07-10] MEDS ORDERED: ONDANSETRON ODT 4 MG TAB PO ONE (00:15)
[2017-07-10] MEDS ORDERED: IBUPROFEN 600 MG TAB PO ONE (00:15)
[2017-07-10 01:42] VITALS: RESP 20
== END 2017-07-10 01:53 | disposition home or self-care (01) ==
LOC: NEPD 20:10
DX: B34.9 Viral infection, unspecified (principal)
CPT/HCPCS: 99283

== ENCOUNTER 2017-07-30 16:18 | Emergency (ER) | payer SELFPAY ==
[~2017-07-30] VITALS: Ht 162.6 cm; Wt 65.0 kg
[~2017-07-30 16:18] MED LIST changes: -IBUP1TAB7 PO; +ZOFR8TAB4 SL
[2017-07-30 16:35] VITALS: BP 139/90; PULSE 93; RESP 18; TEMP 99.3; O2SAT 97
[2017-07-30] MEDS ORDERED: ACETAMINOPHEN 325 MG TAB PO ONE (19:45)
[2017-07-30] MEDS ORDERED: IBUPROFEN 600 MG TAB PO ONE (19:45)
--- NOTE | 2017-07-30 19:50 | PD ---
HPI Chief Complaint: Cold / Flu Symptoms Time Seen by Provider: 19:40 Travel History International Travel<30 days: No Contact w/Intl Traveler<30days: No Traveled to known affect area: No History of Present Illness HPI 22-year-old -Chinese female presents emergency department with several day history of upper respiratory congestion, sore throat, ear pain, chills, decreased appetite, cough, and vomiting 1 yesterday. Patient denies significant wheezing. She has decreased appetite but no diarrhea. Patient was seen by the school clinic and given amoxicillin for bilateral ear infection. She went there yesterday. She is here for reassessment. She took Tylenol at 1300 today. She is allergic to sulfa and blueberries. Rapid influenza was sent in triage. PFSH Past Medical History Asthma: Yes Diminished Hearing: No Respiratory: Yes (asthma) Immunizations Current: Yes ?: Not LMP: 07/15/17 Social History Alcohol Use: No Tobacco Use: No Substance Use: No Allergies-Medications (Allergen,Severity, Reaction): Coded Allergies: Sulfa (Sulfonamide Antibiotics) (Verified Allergy, Severe, Anaphylaxis, 04/06) blueberry (Verified Allergy, Severe, close throat, 07/30/17) Reported Meds & Prescriptions Reported Meds & Active Scripts Active Zofran Odt (Ondansetron Odt) 8 Mg Tab 8 Mg SL Q8H PRN Epipen 2-Luiz Inj (Epinephrine) 0.3 Mg/0.3 Ml Pfpen 0.3 Mg SQ ONCE PRN Reported Dulera 120 Act Inh (Mometasone-Formoterol 120 Act Inh) 100-5 Mcg/Act Inh 2 Puff INH BID Review of Systems Except as stated in HPI: all other systems reviewed are Neg General / Constitutional: Positive: Fever, Chills Eyes: No: Visual changes HENT: Positive: Headaches, Sore Throat, Rhinitis, Rhinorrhea, Congestion, Earache, No: Vertigo, Lightheadedness, Nosebleed, Neck Stiffness, Neck Pain, Gingival Bleeding, Dental Difficulties, Ear Discharge Cardiovascular: No: Chest Pain or Discomfort Respiratory: Positive: Cough, Shortness of Breath, No: Wheezing, Sneezing Gastrointestinal: Positive: Nausea, Vomiting, Loss of Appetite (Once yesterday) , No: Abdominal Pain Genitourinary: No: Dysuria Musculoskeletal: No: Pain Skin: No Rash Neurologic: No: Weakness Psychiatric: No: Depression Endocrine: No: Polydipsia Hematologic/Lymphatic: No: Easy Bruising Physical Exam Narrative GENERAL: Patient appears ill but not septic SKIN: Warm and dry. Normal color. Normal turgor HEAD: Atraumatic. Normocephalic. No sinus tenderness to palpation or percussion EYES: Pupils equal and round. No scleral icterus. No injection or drainage. ENT: No nasal bleeding or discharge. Mucous membranes pink and moist. TMs are both dull bilaterally with mild erythema. Posterior pharynx shows mild erythema without significant tonsillitis or exudate. Sinuses are nontender with palpation. NECK: Trachea midline. Supple and nontender per CARDIOVASCULAR: Regular rate and rhythm. RESPIRATORY: No accessory muscle use. Clear to auscultation. Breath sounds equal bilaterally. GASTROINTESTINAL: Abdomen soft, non-tender, nondistended. Hepatic and splenic margins not palpable. MUSCULOSKELETAL: Extremities without clubbing, cyanosis, or edema. No obvious deformities. NEUROLOGICAL: Awake and alert. No obvious cranial nerve deficits. Motor grossly within normal limits. Five out of 5 muscle strength in the arms and legs. Normal speech. PSYCHIATRIC: Appropriate mood and affect; insight and judgment normal. Data Data Last Documented VS Vital Signs Date Time Temp Pulse Resp B/P (MAP) Pulse Ox O2 Delivery O2 Flow Rate FiO2 07/30/17 16:35 99.3 93 18 139/90 (106) 97 Orders Orders Influenzae A/B Antigen (07/30/17 16:40) Ibuprofen (Motrin) (07/30/17 19:45) Acetaminophen (Tylenol) (07/30/17 19:45) MDM Medical Decision Making Medical Screen Exam Complete: Yes Emergency Medical Condition: Yes Differential Diagnosis Upper respiratory infection. Viral syndrome. Otitis media. Narrative Course Rapid influenza is negative. Patient is given 600 mg ibuprofen, and 650 mg acetaminophen p.o. Further labs or radiography is not felt necessary based on my history and physical. Patient is to continue the amoxicillin as previously prescribed, and rest, push fluids, take Tylenol and ibuprofen, and follow-up if not improving over the weekend. Patient is given a school note through Thursday. Diagnosis Primary Impression: Otitis media Additional Impression: Viral syndrome Patient Instructions: General Instructions Departure Forms: School Release Return to School Date: Aug 03, 2017 Additional Instructions: Rapid influenza is negative. Patient is given 600 mg ibuprofen, and 650 mg acetaminophen p.o. Further labs or radiography is not felt necessary based on my history and physical. Patient is to continue the amoxicillin as previously prescribed, and rest, push fluids, take Tylenol and ibuprofen, and follow-up if not improving over the weekend. Patient is given a school note through Thursday. Med/Other Pt SpecificInfo: No Change to Meds, No Meds Exist/No RX given Disposition: 01 DISCHARGE HOME Condition: Stable Ronen Herbert Jul 30, 2017 19:50
== END 2017-07-30 20:13 | disposition home or self-care (01) ==
LOC: NEPK 16:18
DX: H66.90 Otitis media, unspecified, unspecified ear (principal); B34.9 Viral infection, unspecified
CPT/HCPCS: 87804; 99283